=== PATIENT | female | born 1940 | race Caucasian/White ===

== ENCOUNTER → 2016-06-15 | Outpatient (CLI) | payer OTHER ==
[~2016-06-15] MED LIST: AMLO1CAP12 PO; AREDs PO; ATOR80TA75 PO; CA C1TAB28 PO; CHOL10003 PO; CLOP75TA PO; GLIM1TAB2 PO; HYDR-3138 PO; IRON PO; Iron PO; METF10002 PO; MULT-82 PO; NAPR220C2 PO; OMEP20TA62 PO; OXYC-302 PO; SITA100T PO; ZONI50CA2 PO
== END | disposition home or self-care (01) ==
LOC: CFH 09:49
PROVIDERS: ATTEND Nurse Practitioner Family
DX: Z13.820 Encounter for screening for osteoporosis (principal); M85.88 Other specified disorders of bone density and structure, other site; M89.8X8 Other specified disorders of bone, other site; N95.8 Other specified menopausal and perimenopausal disorders
CPT/HCPCS: 77080

== ENCOUNTER → 2017-07-22 | Outpatient (CLI) | payer OTHER ==
[~2017-07-22] MED LIST changes: +ATOR-2 PO; -ATOR80TA75 PO; -HYDR-3138 PO; +HYDR-3237 PO; +MULT-224 PO; -MULT-82 PO
== END | disposition home or self-care (01) ==
LOC: RAD 16:54
PROVIDERS: ATTEND Family Medicine
DX: R06.02 Shortness of breath (principal); R60.9 Edema, unspecified
CPT/HCPCS: 93970